=== PATIENT | male | born 1985 | race Caucasian/White ===

== ENCOUNTER 2016-09-09 17:32 | Emergency (ER) | payer SELFPAY ==
[~2016-09-09] VITALS: Ht 185.4 cm; Wt 77.0 kg
[~2016-09-09 17:32] MED LIST: BACT800T5 PO; Z.0.NO CURRENT MEDS
[2016-09-09 17:33] VITALS: BP 143/86; PULSE 85; RESP 16; TEMP 98.4; O2SAT 98
--- NOTE | 2016-09-09 17:39 | PD ---
Physical Exam Time Seen by Provider: 17:37 Narrative 30yo M c/o R eye redness and swelling since yesterday. Denies injury. possible foreign body. Eye pain yesterday, but denies today. Denies itchiness, drainage , change in vision. +photophobia. Patient seen in triage. VS reviewed. Awaiting bed placement. Data Data Last Documented VS Vital Signs Date Time Temp Pulse Resp B/P Pulse Ox O2 Delivery O2 Flow Rate FiO2 09/09/16 17:33 98.4 85 16 143/86 98 MDM Supervised Visit with CHENG: Rochelle Mcdonnell Sep 09, 2016 17:39
[2016-09-09] MEDS ORDERED: MAXI5O EACH EYE (17:51)
--- NOTE | 2016-09-09 18:08 | PD ---
HPI Chief Complaint: Eye Problems/Injury Time Seen by Provider: 18:03 Travel History International Travel<30 days: No Contact w/Intl Traveler<30days: No Traveled to known affect area: No History of Present Illness HPI 30-year-old male presents the emergency Department with right eye irritation, erythema, and watery drainage for the past 24 hours. He denies any other symptoms. It is uncomfortable but not significantly painful. He denies itchiness. His denies crusting this morning. He denies any visual changes. He denies any specific foreign body injury. He does not wear contacts. 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 He has no known drug allergies. PFSH Past Medical History Diminished Hearing: Yes (HIGH PITCH) Social History Alcohol Use: Yes (3 BEERS PER WEEKEND X ONE YEAR) Tobacco Use: Yes (1/2 PPD X 5 YEARS) Substance Use: No Allergies-Medications (Allergen,Severity, Reaction): Coded Allergies: No Known Allergies (Verified , 08/09/13) Reported Meds & Prescriptions Reported Meds & Active Scripts Active Maxitrol Opth Drops (Neomycin/Polymyxin/Dexamethasone) 3.5-10,000-0.1 Mg-Units- % Susp 1 Drop EACH EYE Q4H Bactrim DS (Sulfamethoxazole-Trimethoprim DS) 1 Tab Tab 1 Tab PO BID Reported No Current Meds (Miscellaneous Medication) Misc Review of Systems Except as stated in HPI: all other systems reviewed are Neg General / Constitutional: No: Fever Eyes: Positive: Photophobia, Redness, Pain, Tearing, No: Diploplia, Blurred Vision, Drainage (mild), Foreign Body Sensation, Blind Spots, Visual changes, Blindness HENT: No: Headaches Cardiovascular: No: Chest Pain or Discomfort Respiratory: No: Shortness of Breath Gastrointestinal: No: Abdominal Pain Genitourinary: No: Dysuria Musculoskeletal: No: Pain Skin: No Rash Neurologic: No: Weakness Psychiatric: No: Depression Endocrine: No: Polydipsia Hematologic/Lymphatic: No: Easy Bruising Physical Exam Narrative GENERAL: Patient appears no acute distress. SKIN: Warm and dry. Normal color. Normal turgor. No rash. HEAD: Atraumatic. Normocephalic. EYES: Pupils equal and round. No scleral icterus. Moderate injection to the right conjunctiva without significant eyelid swelling or drainage. Patient has mild watery drainage. Left eye appears normal. ENT: No nasal bleeding or discharge. Mucous membranes pink and moist. TMs are clear bilaterally. Pharynx is clear. No injection. Airway is patent. NECK: Trachea midline. Supple and nontender without lymphadenopathy. CARDIOVASCULAR: Regular rate and rhythm. RESPIRATORY: No accessory muscle use. Clear to auscultation. Breath sounds equal bilaterally. MUSCULOSKELETAL: Extremities without clubbing, cyanosis, or edema. No obvious deformities. NEUROLOGICAL: Awake and alert. No obvious cranial nerve deficits. Motor grossly within normal limits. Five out of 5 muscle strength in the arms and legs. Normal speech. PSYCHIATRIC: Appropriate mood and affect; insight and judgment normal. Data Data Last Documented VS Vital Signs Date Time Temp Pulse Resp B/P Pulse Ox O2 Delivery O2 Flow Rate FiO2 09/09/16 17:33 98.4 85 16 143/86 98 MDM Medical Decision Making Medical Screen Exam Complete: Yes Emergency Medical Condition: Yes Differential Diagnosis Corneal abrasion. Foreign body. Conjunctivitis. Narrative Course Patient is felt to have acute conjunctivitis of the right eye. Patient will be treated with Maxitrol ophthalmic drops every 3 hours while awake for the next 7 days. Patient can take Tylenol and ibuprofen as needed for discomfort. Patient should follow with her primary care physician or shooter's helper if symptoms do not improve or worsen. Work note is given. Diagnosis Primary Impression: Acute conjunctivitis, right eye Qualified Code: H10.31 - Acute conjunctivitis of right eye, unspecified acute conjunctivitis type Departure Forms: Work Release Enter return to work date: Sep 11, 2016 Additional Instructions: Patient is felt to have acute conjunctivitis of the right eye. Patient will be treated with Maxitrol ophthalmic drops every 3 hours while awake for the next 7 days. Patient can take Tylenol and ibuprofen as needed for discomfort. Patient should follow with her primary care physician or shooter's helper if symptoms do not improve or worsen. Work note is given. Med/Other Pt SpecificInfo: Prescription(s) given Scripts Siyqstyd-Vhndshxiv-Edhleorhmgidg Opth Drops (Maxitrol Opth Drops)3.5-10,000-0.1 Mg-Units-% Susp1 Drop EACH EYE Q4H #1 BOTTLE Prov:Nikos Collazo MD 09/09/16 Disposition: 01 DISCHARGE HOME Condition: Stable Misael Cuellar Sep 09, 2016 18:08
== END 2016-09-09 18:19 | disposition home or self-care (01) ==
LOC: NEPK 17:32
DX: H10.31 Unspecified acute conjunctivitis, right eye (principal); H91.8X9 Other specified hearing loss, unspecified ear; F17.210 Nicotine dependence, cigarettes, uncomplicated
CPT/HCPCS: 99283